=== PATIENT | female | born 1995 | race American Indian/Alaskan Native ===

== ENCOUNTER 2017-08-14 18:49 | Emergency (ER) | payer SELFPAY ==
[2017-08-14 19:00] VITALS: BP 114/78; PULSE 81; RESP 18; TEMP 98.6; O2SAT 100
--- NOTE | 2017-08-14 19:32 | C.PDOC ---
History Of Present Illness Patient complains of cramping pain in pelvic area, thinks it is her IUD. She reports having IUD Liletta placed in late June last year. She reports having cramping pain on and off for almost 2 months. She denies having intercourse, dysuria, discharge and admits to light bleeding for few days. She took Advil today with mild relief. Time Seen by Provider: 08/14/17 19:16 Chief Complaint (Nursing): Female Genitourinary History Per: Patient History/Exam Limitations: no limitations Onset/Duration Of Symptoms: Days Severity: Mild Quality Of Discomfort: "Pain" Past Medical History Reviewed: Historical Data, Nursing Documentation, Vital Signs Vital Signs: Last Vital Signs Temp 98.6 F 08/14/17 18:57 Pulse 81 08/14/17 18:57 Resp 18 08/14/17 18:57 BP 114/78 08/14/17 18:57 Pulse Ox 100 08/14/17 19:36 - Medical History PMH: No Chronic Diseases Surgical History: No Surg Hx Family History: States: Unknown Family Hx - Social History Hx Alcohol Use: Yes Hx Substance Use: No - Immunization History Hx Tetanus Toxoid Vaccination: No Hx Influenza Vaccination: No Hx Pneumococcal Vaccination: No Review Of Systems Except As Marked, All Systems Reviewed And Found Negative. Genitourinary: Positive for: Pelvic Pain Physical Exam - Physical Exam Appears: Non-toxic, No Acute Distress Skin: Warm, Dry Head: Atraumatic, Normacephalic Eye(s): bilateral: Normal Inspection, EOMI Neck: Normal ROM Chest: Symmetrical Cardiovascular: Rhythm Regular, No Murmur Respiratory: Normal Breath Sounds, No Wheezing Gastrointestinal/Abdominal: Soft, No Tenderness Pelvic: Other (patient eloped prior to exam) Extremity: Bilateral: Atraumatic, Normal Color And Temperature, Normal ROM Neurological/Psych: Oriented x3, Normal Speech ED Course And Treatment O2 Sat by Pulse Oximetry: 100 Medical Decision Making Medical Decision Making: Patient with IUD and complains of pelvic pain. Urine analysis was ordered. Need to do pelvic exam, however supervisor [employer] room is not available at this moment and patient informed needs to wait. Patient eloped from ED prior to full examination and receiving results. Disposition Counseled Patient/Family Regarding: Diagnosis, Need For Followup - Disposition Disposition: ELOPEMENT - ER ONLY Disposition Time: 19:28 Condition: STABLE Instructions: Pelvic Pain in Women (ED) Forms: [employer] ([place]adorean) - POA Present On Arrival: None - Clinical Impression Clinical Impression: Pelvic pain, IUD check up
== END 2017-08-14 19:39 | disposition left against medical advice (07) ==
LOC: C.ER 18:49
DX: Z30.431 Encounter for routine checking of intrauterine contraceptive device (principal); R10.2 Pelvic and perineal pain